=== PATIENT | male | born 1955 | race Caucasian/White ===

== ENCOUNTER 2019-04-04 09:56 | Inpatient (IN) ==
[2019-04-04] MEDS ORDERED: niCARdipine 0 MG/0 ML MLS IVC ONE (10:02)
[2019-04-04] MEDS ORDERED: Aspirin 325 MG TABLET PO ONE (10:10)
[2019-04-04] MEDS ORDERED: Amiodarone Premix 150 MG/100 ML BAG IVPB ONE ×2 (10:10→10:45)
[2019-04-04] MEDS ORDERED: 0.9 % Sodium Chloride 1,000 ML IVC ONE ×3 (10:10→16:20)
[2019-04-04] MEDS ORDERED: Amiodarone Premix 360 MG/200 ML BAG IVC ONE ×3 (10:10→16:22)
[2019-04-04 10:19] LABS: Basophils # 0.1 K/mcL (0.0-0.2); Basophils % 0.9 %; Eosinophils # 0.2 K/mcL (0.0-0.6); Eosinophils % 2.2 %; Hematocrit 45.1 % (37.5-50.1); Immature Granulocytes % 0.3 % (0-4); Lymphocytes # 1.7 K/mcL (0.6-4.6); Lymphocytes % 24.7 %; Mean Corpuscular HGB Conc 33.3 g/dL (31.6-35.5); Mean Corpuscular Hemoglobin 29.9 pg (28.0-33.3); Mean Platelet Volume 9.5 fL (9.4-12.4); Monocytes # 0.6 K/mcL (0.0-1.3); Monocytes % 9.2 %; Neutrophils # 4.2 K/mcL (1.6-8.9); Platelet Count 274 K/mcL (140-400); Red Blood Count 5.01 M/mcL (4.19-5.50); Red Cell Distribution Width 13.4 % (11.5-14.5); Segmented Neutrophils % 62.7 %; White Blood Count 6.7 K/mcL (4.3-11.1)
--- NOTE | 2019-04-04 10:33 | Emergency Department Note ---
Disposition Clinical Impression: Ventricular tachycardia Atrial fibrillation Qualifiers: Atrial fibrillation type: unspecified Qualified Code(s): I48.91 - Unspecified a trial fibrillation Disposition: Admitted As Inpatient Condition: Fair Referrals: Kory Bacon MD [Primary Care Provider] - Forms: ED Satisfaction Letter Time of Disposition: 11:48 General Adult HPI - General Chief complaint: ED Arrhythmia/Palpitations Stated complaint: A. fib Time Seen by Provider: 04/04/19 10:05 Source: patient, EMS Limitations: no limitations Nursing Notes Reviewed: Yes Vital Signs Reviewed: Yes - History of Present Illness Pain Scale: 0 - Related Data Home Medications Medication Instructions Recorded Confirmed Aspirin 325 mg PO DAILY 04/29/17 04/04/19 Metformin HCl [Glucophage] 1,000 mg PO BID 04/29/17 04/04/19 Allergies Allergy/AdvReac Type Severity Reaction Status Date / Time No Known Allergies Allergy Verified 04/04/19 10:27 Past Medical History - Past Medical History Medical history: Reports: CVA, diabetes Surgical history: Reports: herniorrhaphy Psychiatric history: Reports: no psych history - Social History Smoking Status: Never smoker Smokeless Tobacco Status: No Alcohol use: Reports: none Drug use: Reports: none Physical Exam - General Limitations: no limitations General appearance: alert, in no apparent distress Course Vital Signs Temperature 98.3 F 04/04/19 09:59 Pulse Rate 130 04/04/19 09:59 Respiratory Rate 18 04/04/19 09:59 Blood Pressure 120/103 04/04/19 09:59 O2 Sat by Pulse Oximetry 98 04/04/19 09:59 Temperature 98.3 F 04/04/19 09:59 Pulse Rate 128 04/04/19 11:58 Respiratory Rate 18 04/04/19 11:58 Blood Pressure 106/84 04/04/19 11:58 O2 Sat by Pulse Oximetry 100 04/04/19 11:58 Oxygen Delivery Oxygen Delivery Room Air Medical Decision Making - [facility] Narrative Medical decision making narrative: Chest X-Ray 04/04/19 09:58 IMPRESSION: No acute cardiopulmonary findings. D/ / Sasha Jordan MD / Sasha Jordan MD Interpreting Provider: Sasha Jordan MD 1100 hrs.: Patient's labs are back and looked good, troponins negative. Patient's heart rate on 10 mg of diltiazem we will go anywhere from 64 to 120. He is having no chest pain. No further signs of V. tach. We will speak with cardiology and admitted to hospitalist. 1145 hrs. patient's repeat EKG shows a sinus rhythm, rate is 70, QRS is 85, QTc is 389, no signs of acute ischemia he does have Q waves in the inferior leads. No more ectopy. I spoke with Dr. Fisher, he said to go ahead and put a consult on for him. Admit to hospitalist. Transition him off the Cardizem, keep him on the heparin. We will turn the Cardizem down to 5 and see if that works for the next hour and if so then we will transition completely off. And will update with hospitalist. He said to go and put in an echocardiogram non-stat. 1200 hrs.: Patient had a repeat EKG heart rate is 149 with atrial fibrillation, but also has sinus tach, does have Q waves in the inferior leads as before. No ectopy. - Lab Data Result diagrams: 04/04/19 10:07 04/04/19 10:07 Lab Results 04/04/19 04/04/19 04/04/19 Range/Units 10:07 10:07 10:07 WBC 6.7 (4.3-11.1) K/mcL RBC 5.01 (4.19-5.50) M/mcL Hgb 15.0 (12.9-16.9) g/dL Hct 45.1 (37.5-50.1) % MCV 90.0 (83.0-100.0) fL MCH 29.9 (28.0-33.3) pg MCHC 33.3 (31.6-35.5) g/dL RDW 13.4 (11.5-14.5) % Plt Count 274 (140-400) K/mcL MPV 9.5 (9.4-12.4) fL Immature Gran % 0.3 (0-4) % Seg Neutrophils % 62.7 % Lymphocytes % 24.7 % Monocytes % 9.2 % Eosinophils % 2.2 % Basophils % 0.9 % Neutrophils # 4.2 (1.6-8.9) K/mcL Lymphocytes # 1.7 (0.6-4.6) K/mcL Monocytes # 0.6 (0.0-1.3) K/mcL Eosinophils # 0.2 (0.0-0.6) K/mcL Basophils # 0.1 (0.0-0.2) K/mcL Heparin Anti-Xa, Unfract 0.02 L (0.30-0.70) IU/mL Sodium 136 (136-145) mEq/L Potassium 4.6 (3.5-5.1) mEq/L Chloride 101 (98-107) mEq/L Carbon Dioxide 27 (23-29) mEq/L BUN 20 (8-23) mg/dL Creatinine 0.88 (0.70-1.30) mg/dL Est GFR ( Amer) > 60 (> 60) Est GFR (Non-Af Amer) > 60 (> 60) BUN/Creatinine Ratio 23 (6-26) Glucose 205 H (70-105) mg/dL Calculated Osmolality 291 (280-300) Calcium 9.6 (8.6-10.3) mg/dL Magnesium 2.0 (1.6-2.6) mg/dL Troponin I < 0.03 (< 0.04) ng/mL TSH 1.491 (0.340-5.600) mcIU/mL Critical Care Time Critical Care Time: Yes Total Critical Care Time: 50 Attestation: Excluding any separately billable procedures. Attestation Statement - Attestation Attestation: This documentation is done with the assistance of Dragon dictation. Despite efforts made to ensure accuracy, there may be inaccuracies in assembly supervisor or spelling and typographical errors. I examined this patient and my medical decision-making was reviewed with the Resident Physician. I agree with the documented findings, disposition and treatment plan as described except to the extent set forth below. Patient was seen and evaluated by Dr. Porter, I agree with their evaluation and management plan, I supervised care the patient's stay. Patient presents from EMS with atrial fibrillation with rapid ventricular response and episodes of V. tach. 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 He said last night he had some rapid heart rate. This morning he felt fine when he got up he was driving into work and thought his heart rate was rapid again and he started feeling strange. The physician in the urgent care get an EKG on him which showed atrial fibrillation with a rapid ventricular response rates were in between 120s and 160s. And then patient state he had a change he noted that he felt odd did not have any shortness of breath or chest pain. He repeated a strep on him and noted that he was having runs of V. tach anywhere from 8 to 12 beats. Patient had EMS called EMS transported patient here. He had a pulse with each of these episodes of V. tach. And he has had 3 episodes while he has been here. He has not had a history of atrial fibrillation. He is diabetic. He said a stroke in the past. He takes aspirin and metformin as he is diabetic. He denies any allergies. He tells me he thinks he has a hole in his heart ask if that was a PFO and he was uncertain. But it has not been repaired. Because the episodes of V. tach. He did get a dose of amiodarone. I spoke with cardiology, Dr. Fisher, he said to go ahead and start him on diltiazem and see if we could do slow down his heart rate. Started him on heparin. And then we will do a workup and admit. Once again labs back and him stabilized we will speak with Dr. Fisher and hospitalist. Patient denies any chest pain at this time. Heart rate goes anywhere from 60s up to 160. But has had no further episodes of V. tach since he has started on the medication here. I reviewed the residents documentation and agree with the residents assessment and plan of care. I have personally had face to face time with the patient. (Brief History, Brief Exam, and MDM) I personally supervised and was present for the butts/critical portions of the following procedures completed by the resident: EKG was interpreted by the resident under my supervision, I agree with their interpretation.
[2019-04-04] MEDS ORDERED: *HR* Heparin 5,000 UNIT/ML VIAL IVP ONE (10:34)
[2019-04-04] MEDS ORDERED: *HR* Heparin 5,000 UNIT/ML VIAL IVP PRN ×2 (10:34)
[2019-04-04 10:41] LABS: BUN/Creatinine Ratio 23 (6-26); Blood Urea Nitrogen 20 mg/dL (8-23); Calcium 9.6 mg/dL (8.6-10.3); Carbon Dioxide 27 mEq/L (23-29); Chloride 101 mEq/L (98-107); Glucose 205 mg/dL (70-105); Osmolality,Calculated 291 (280-300); Potassium 4.6 mEq/L (3.5-5.1); Sodium 136 mEq/L (136-145); eGFR For African Americans > 60 (> 60); eGFR For Non-African Americans > 60 (> 60)
[2019-04-04 10:42] LABS: Troponin I < 0.03 ng/mL (< 0.04)
[2019-04-04 10:55] LABS: Thyroid Stimulating Hormone 1.491 mcIU/mL (0.340-5.600)
[2019-04-04] MEDS ORDERED: Heparin 25,000 UNIT/250 ML D5W 25,000 UNIT/250 ML IV.SOLN IVC ONE (11:06)
[2019-04-04] MEDS: Heparin 25,000 UNIT/250 ML D5W 25,000 UNIT/250 ML IV.SOLN IVC SCH (11:10)
--- NOTE | 2019-04-04 11:18 | Emergency Department Note ---
Disposition Clinical Impression: Ventricular tachycardia Atrial fibrillation Qualifiers: Atrial fibrillation type: unspecified Qualified Code(s): I48.91 - Unspecified a trial fibrillation Disposition: Admitted As Inpatient Condition: Good Referrals: Kory Bacon MD [Primary Care Provider] - Forms: ED Satisfaction Letter Time of Disposition: 11:45 Arrhythmia/Palpitations HPI - General Chief Complaint: ED Arrhythmia/Palpitations Stated Complaint: chest pain Time Seen by Provider: 04/04/19 10:05 Source: patient, EMS Limitations: no limitations Nursing Notes Reviewed: Yes Vital Signs Reviewed: Yes - History of Present Illness HPI Narrative: Male patient with a cardiac history of a "hole in his heart." As well as a stroke previously his currently only on aspirin a day present see emergency department from work. States that last night he woke up like he was having nightmares his heart was racing. When he went to work this morning he states he had similar feelings. As he got to work he got sicker. He denies any chest pain just palpitations. Denies any shortness of breath. He states that he just does not feel well. Denies any cough or congestion. He denies any drug use. States that he did drink around 3-4 cups of coffee today which this is normal for him. - Related Data Home Medications Medication Instructions Recorded Confirmed Aspirin 325 mg PO DAILY 04/29/17 04/04/19 Metformin HCl [Glucophage] 1,000 mg PO BID 04/29/17 04/04/19 Allergies Allergy/AdvReac Type Severity Reaction Status Date / Time No Known Allergies Allergy Verified 04/04/19 10:27 All systems ED: reviewed and negative except as stated. Review of Systems: As Per HPI Constitutional: Denies: fever, chills ENT ED: Denies: congestion Cardiovascular: Reports: palpitations. Denies: chest pain, syncope Respiratory: Denies: cough, dyspnea Gastrointestinal: Denies: abdominal pain, nausea, vomiting, diarrhea Genitourinary: Denies: urgency, dysuria, frequency, hematuria Integumentary: Denies: rash Neurological: Reports: weakness Past Medical History - Past Medical History Attestation: Yes The following information was validated with the patient. Source: patient Medical history: Reports: CVA, diabetes Surgical history: Reports: herniorrhaphy Psychiatric history: Reports: no psych history - Social History Smoking Status: Never smoker Smokeless Tobacco Status: No Alcohol use: Reports: none Drug use: Reports: none Physical Exam - General Limitations: no limitations General appearance: alert, in no apparent distress - Head Head exam: atraumatic, normocephalic, normal inspection - Eye Eye exam: Present: normal appearance, PERRL, EOMI - ENT ENT exam: normal exam, normal oropharynx, mucous membranes moist - Neck Neck exam: Present: normal inspection, full ROM, trachea midline - Chest Chest inspection: Present: normal inspection, symmetric chest wall rise - Respiratory Respiratory exam: Present: normal lung sounds bilaterally. Absent: respiratory distress, accessory muscle use - Cardiovascular Cardiovascular exam: Present: tachycardia, irregular rhythm, normal heart sounds - Abdominal Exam Abdominal exam: Present: soft, Non-Tender. Absent: tenderness, distention, guarding, rebound, rigidity, organomegaly, Aquino's sign, Rovsing's sign, tenderness at McBurney's Point - Extremities Exam Extremities exam: Present: normal inspection, full ROM, normal capillary refill. Absent: tenderness, pedal edema, calf tenderness - Back Exam Back exam: Present: normal inspection, full ROM. Absent: tenderness - Neurological Exam Neurological exam: Present: alert, oriented X3 - Psychiatric Psychiatric exam: Present: normal affect, normal mood - Skin Skin exam: Present: warm, dry, intact, normal color. Absent: rash, cyanosis, diaphoresis Course Course Narrative: Patient does have a run of V. tach while he is here. He is in A. fib at this time. Bouncing from 60 up to the 160s. He states that he is not feeling well. He denies any chest pain but does report palpitations. We did give patient 150 mg of amiodarone as a bolus secondary to his paroxysmal ventricular tachycardia. My attending did speak with Dr. Fisher with cardiology and he is requesting that we use Cardizem. We will start even the patient a bolus of amiodarone so we will start this as a drip. Patient has no significant electrolyte abnormalities. No history of A. fib. Concern for possible PFO although this is unknown. He just states he has a "hole in his heart. His lung sounds are clear heart tones are normal abdomen is soft nontender. No signs of edema to his extremities. Chest x-ray not concerning for an increased cardiac silhouette. No signs of pneumonia. We did place the patient on low-dose heparin and will admit to the hospital. - Reevaluation(s) Reevaluation #1: Patient's lab work is unremarkable at this time. TSH is normal. Troponin is negative. Chest x-ray is not concerning. Patient is currently on Cardizem drip at this time. He did receive 150 mg bolus of amiodarone. Is on 10 mg grams of Cardizem at this time. His blood pressure is normal systolic however his heart rate is still jumping anywhere from 62 up to the 150s. We will rediscuss this patient with Dr. Fisher and admitted to the hospital. Time: 11:10 - Consultations Consultation #1: Dr Buenrostro accepted Pt in stable condition. Time: 11:30 Vital Signs Temperature 98.3 F 04/04/19 09:59 Pulse Rate 130 04/04/19 09:59 Respiratory Rate 18 04/04/19 09:59 Blood Pressure 120/103 04/04/19 09:59 O2 Sat by Pulse Oximetry 98 04/04/19 09:59 Temperature 98.3 F 04/04/19 09:59 Pulse Rate 62 04/04/19 12:23 Respiratory Rate 16 04/04/19 12:23 Blood Pressure 103/77 04/04/19 12:23 O2 Sat by Pulse Oximetry 100 04/04/19 12:23 Oxygen Delivery Oxygen Delivery Room Air Arrhythmia/Palpitations - Medical Records Medical records reviewed: Yes I reviewed the patient's medical records. - Lab Data Lab results reviewed: Yes I reviewed the patient's lab results. Result diagrams: 04/04/19 10:07 04/04/19 10:07 Lab Results 04/04/19 04/04/19 04/04/19 Range/Units 10:07 10:07 10:07 WBC 6.7 (4.3-11.1) K/mcL RBC 5.01 (4.19-5.50) M/mcL Hgb 15.0 (12.9-16.9) g/dL Hct 45.1 (37.5-50.1) % MCV 90.0 (83.0-100.0) fL MCH 29.9 (28.0-33.3) pg MCHC 33.3 (31.6-35.5) g/dL RDW 13.4 (11.5-14.5) % Plt Count 274 (140-400) K/mcL MPV 9.5 (9.4-12.4) fL Immature Gran % 0.3 (0-4) % Seg Neutrophils % 62.7 % Lymphocytes % 24.7 % Monocytes % 9.2 % Eosinophils % 2.2 % Basophils % 0.9 % Neutrophils # 4.2 (1.6-8.9) K/mcL Lymphocytes # 1.7 (0.6-4.6) K/mcL Monocytes # 0.6 (0.0-1.3) K/mcL Eosinophils # 0.2 (0.0-0.6) K/mcL Basophils # 0.1 (0.0-0.2) K/mcL Heparin Anti-Xa, Unfract 0.02 L (0.30-0.70) IU/mL Sodium 136 (136-145) mEq/L Potassium 4.6 (3.5-5.1) mEq/L Chloride 101 (98-107) mEq/L Carbon Dioxide 27 (23-29) mEq/L BUN 20 (8-23) mg/dL Creatinine 0.88 (0.70-1.30) mg/dL Est GFR ( Amer) > 60 (> 60) Est GFR (Non-Af Amer) > 60 (> 60) BUN/Creatinine Ratio 23 (6-26) Glucose 205 H (70-105) mg/dL Calculated Osmolality 291 (280-300) Calcium 9.6 (8.6-10.3) mg/dL Magnesium 2.0 (1.6-2.6) mg/dL Troponin I < 0.03 (< 0.04) ng/mL TSH 1.491 (0.340-5.600) mcIU/mL Urine Color (Yellow) Urine Clarity (Clear) Urine pH (5.0-8.0) pH Units Ur Specific Ferris (1.010-1.025) Urine Protein (Neg-Trace) mg/dL Urine Glucose (UA) (Normal) mg/dL Urine Ketones (Negative) mg/dL Urine Blood (Negative) Urine Nitrite (Negative) Urine Bilirubin (Negative) Urine Urobilinogen (Normal) mg/dL Ur Leukocyte Esterase (Negative) Ur Culture Indicated? (NO) 04/04/19 Range/Units 12:03 WBC (4.3-11.1) K/mcL RBC (4.19-5.50) M/mcL Hgb (12.9-16.9) g/dL Hct (37.5-50.1) % MCV (83.0-100.0) fL MCH (28.0-33.3) pg MCHC (31.6-35.5) g/dL RDW (11.5-14.5) % Plt Count (140-400) K/mcL MPV (9.4-12.4) fL Immature Gran % (0-4) % Seg Neutrophils % % Lymphocytes % % Monocytes % % Eosinophils % % Basophils % % Neutrophils # (1.6-8.9) K/mcL Lymphocytes # (0.6-4.6) K/mcL Monocytes # (0.0-1.3) K/mcL Eosinophils # (0.0-0.6) K/mcL Basophils # (0.0-0.2) K/mcL Heparin Anti-Xa, Unfract (0.30-0.70) IU/mL Sodium (136-145) mEq/L Potassium (3.5-5.1) mEq/L Chloride (98-107) mEq/L Carbon Dioxide (23-29) mEq/L BUN (8-23) mg/dL Creatinine (0.70-1.30) mg/dL Est GFR ( Amer) (> 60) Est GFR (Non-Af Amer) (> 60) BUN/Creatinine Ratio (6-26) Glucose (70-105) mg/dL Calculated Osmolality (280-300) Calcium (8.6-10.3) mg/dL Magnesium (1.6-2.6) mg/dL Troponin I (< 0.04) ng/mL TSH (0.340-5.600) mcIU/mL Urine Color Yellow (Yellow) Urine Clarity Clear (Clear) Urine pH 5.5 (5.0-8.0) pH Units Ur Specific Ferris 1.016 (1.010-1.025) Urine Protein Negative (Neg-Trace) mg/dL Urine Glucose (UA) Normal (Normal) mg/dL Urine Ketones Negative (Negative) mg/dL Urine Blood Negative (Negative) Urine Nitrite Negative (Negative) Urine Bilirubin Negative (Negative) Urine Urobilinogen Normal (Normal) mg/dL Ur Leukocyte Esterase Negative (Negative) Ur Culture Indicated? NO (NO) - Radiology Data Radiology results reviewed: Yes I reviewed the patient's radiology results. - EKG Data EKG attestation: Yes I reviewed and interpreted this EKG. EKG results narrative: A. fib at a rate of 146. NH interval was not measured. Your's duration is 83. QT is 311. QTC is 395. No signs of acute ischemia. Slow R-wave progression. No signs of WPW or Brugada. This is new onset A. fib for the patient.
[2019-04-04 12:19] LABS: Bilirubin,Urine Negative (Negative); Blood,Urine Negative (Negative); Clarity,Urine Clear (Clear); Color,Urine Yellow (Yellow); Glucose,Urine (UA) Normal (Normal); Ketones,Urine Negative (Negative); Leukocyte Esterase,Urine Negative (Negative); Nitrite,Urine Negative (Negative); PH,Urine 5.5 pH Units (5.0-8.0); Protein,Urine Negative (Neg-Trace); Specific Gravity,Urine 1.016 (1.010-1.025); Urobilinogen,Urine Normal (Normal)
[2019-04-04] MEDS: 0.9 % Sodium Chloride 1,000 ML IVC SCH (12:41)
[2019-04-04] MEDS ORDERED: Acetaminophen 325 MG TABLET PO PRN (14:47)
[2019-04-04] MEDS ORDERED: Naloxone 0.4 MG/ML INJ IVP PRN (14:47)
--- NOTE | 2019-04-04 14:56 | Cardiology Consult Note ---
Date of Encounter: 04/04/19 Time of Encounter: 14:55 Assessment and Plan (1) Atrial fibrillation Current Visit: Yes Status: Acute Per Cardiology: Apparent new onset PAF. Currently sinus rhythm and fluctuating to A. fib with RVR. TSH and Mag stable. Troponin negative. Cycle troponins. Echo pending. We will evaluate for possible stress test tomorrow. On Cardizem drip-- continue to titrate as needed. Monitor tele. No VT noted currently. Electrolytes stable. Regarding long-term anticoagulation, currently on IV heparin drip. Long-term anticoagulation will need addressed prior to discharge. Has history of CVA and ASD repair in 2002. Denies any falling. Denies any recent bleeding concerns. Discussed and reviewed with Dr. Fisher. Qualifiers: Qualified Code(s): I48.0 - Paroxysmal atrial fibrillation Discussion w patient/family: The assessment and plan as outlined above was discussed with the patient and/or family members who expressed understanding and agreement. All questions were answered. Thank you for involving us in the care of your patient. Please call with any questions. History of Present Illness Consult date: 04/04/19 Consult reason: afib Chief complaint: Dizziness History of present illness: Mr. Zhang is a 63 year old male with relevant past medical history of diabetes mellitus, CVA in 2002, ASD repair at [facility] around 2002. Cardiology consult for A. fib and ventricular tachycardia. Seen with family today at bedside. Reports went to work today and noticed episodes of dizziness intermittently. He denied any syncope or falls. Denies any chest pain, shortness of breath, palpitations. Reports ECG obtained at work and noted to be in atrial fibrillation. Currently reports intermittent dizziness. Continues to deny any other concerns or complaints. Denies any recent falls. Denies any active bleeding or blood loss. Reports history of rectal bleeding about 3-4 years ago and underwent GI evaluation with "[facility]". Denies any known history of atrial fibrillation. Denies any recent infectious process, denies any fever, chills, nausea, vomiting, diarrhea. Past Med Surg Social Fam HX - Past Medical History Attestation: Yes The following information was validated with the patient. Source: patient, old records reviewed, obtained from family Medical history: CVA, diabetes, other (ASD repair) Psychiatric history: no psych history - Past Surgical History Surgical History: herniorrhaphy - Social History Smoking Status: Never smoker Smokeless Tobacco Status: No Alcohol use: none Drug use: none Medications and Allergies Aspirin 325 mg PO DAILY 04/29/17 [History] Metformin HCl [Glucophage] 1,000 mg PO BID 04/29/17 [History] Allergy/AdvReac Type Severity Reaction Status Date / Time No Known Allergies Allergy Verified 04/04/19 10:27 All Systems Review: The remainder of the systems were reviewed and are negative - Cardiovascular Cardiovascular: as per HPI, lightheadedness Physical Examination Vital Signs, Last 4 Hours Temp Pulse Resp BP Pulse Ox 04/04/19 14:13 97.7 F 144 26 96/68 99 04/04/19 13:23 128 18 94/64 99 04/04/19 12:48 78 16 99 04/04/19 12:23 62 16 103/77 100 04/04/19 11:58 128 18 106/84 100 General: Conversant, No Apparent Distress HEENT: Atraumatic, Normocephaly, Mucus Membranes Moist Neck: No JVD, Normal carotid pulses Cardiac: Reg Rate and Rhythm, Normal S1 and S2, No Murmur, Other (During exam noted to be sinus rhythm and other times afib) Lungs: Normal Breath Sounds, No Wheeze, Rales, Rhonchi Neuro: Alert and responsive, No focal deficits noted Abdomen: Soft, Non-Tender Skin: No rashes noted on visualized skin Musculoskeletal: No Chest Wall Tenderness Extremities: No Clubbing, No Cyanosis, No Edema, Normal Pulses Results 04/04/19 10:07 04/04/19 10:07 Lab Results Laboratory Tests 04/04/19 04/04/19 10:07 10:07 WBC 6.7 Hgb 15.0 Hct 45.1 Creatinine 0.88 Est GFR (Non-Af Amer) > 60 Troponin I < 0.03 TSH 1.491 ITS Impressions Chest X-Ray 04/04/19 09:58 IMPRESSION: No acute cardiopulmonary findings. D/ / Sasha Jordan MD / Sasha Jordan MD Interpreting Provider: Sasha Jordan MD Active Medications Acetaminophen (Tylenol) 650 mg PO Q6HR PRN PRN Reason: Mild Pain/Fever Stop: 10/04/19 14:48 Heparin Sodium (Porcine) (Heparin) 4,000 unit IVP Q6HR PRN PRN Reason: SEE COMMENTS Stop: 10/04/19 10:35 Heparin Sodium (Porcine) (Heparin) 2,000 unit IVP Q6H PRN PRN Reason: SEE COMMENTS Stop: 10/04/19 10:35 Diltiazem HCl 125 mg/ Sodium (Chloride) 125 mls @ 5 mls/hr IVC CONT JENNIFER; Protocol Stop: 10/04/19 10:31 Last Infusion: 04/04/19 14:52 Dose: 5 mg/hr, 5 mls/hr Documented by: Heparin Sodium/Dextrose (Heparin 25,000 Unit/250 Ml D5w) 25,000 unit in 250 mls @ 9.996 mls/hr IVC .Q24H JENNIFER; Protocol Stop: 10/04/19 10:46 Last Admin: 04/04/19 11:10 Dose: 11.9 unit/kg/hr, 10 mls/hr Documented by: Sodium Chloride (0.9 % Sodium Chloride) 1,000 mls @ 100 mls/hr IVC .Q10H JENNIFER Stop: 10/04/19 12:31 Last Admin: 04/04/19 12:41 Dose: 100 mls/hr Documented by: Naloxone HCl (Narcan) 0.4 mg IVP Q2MPRN PRN PRN Reason: SEE COMMENTS Stop: 10/04/19 14:48 - Imaging and Cardiology Echo: pending - EKG Interpretation EKG results cardiology: personally reviewed Consult Discharge Plan - Plan Referrals: Kory Bacon MD [Primary Care Provider] -
--- NOTE | 2019-04-04 15:07 | Internal Med History&Physical ---
Date of Encounter: 04/04/19 Time of Encounter: 15:00 Internal Medicine - H&P: HPI Chief complaint: Dizziness and lightheadedness Admitted From: Emergency Dept Plans for Post Hospital Care: Home History of present illness: Mr. 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 The patient stated on his way to work this morning he felt dizzy but decided to go to work anyway. However while at work he was not able to fully perform his duties due to dizziness and lightheadedness but denies any loss of consciousness. He stated his boss referred him to go to the ED to be evaluated. He denies any prior history of atrial fibrillation however his was at his bedside stated that patient also has night terrors. She stated that the patient yesterday told her that he is tired of his night terrors making him to having racing heart beats. Overall patient denies any prior history of GI bleed or frequent falls. His workup at the ED was unremarkable-CBC BMP initial troponin and TSH were all within normal limits. His chest x-ray revealed no acute cardiopulmonary abnormality however he was noted to have atrial fibrillation with rapid ventricular response. He has been started on diltiazem drip and heparin drip. He was seen by transcription typist per the consult note, Plan for stress test tomorrow Past Med Surg Social Fam HX - Past Medical History Medical history: CVA, diabetes Psychiatric history: no psych history - Past Surgical History Surgical History: herniorrhaphy - Social History Smoking Status: Never smoker Smokeless Tobacco Status: No Alcohol use: none Drug use: none Internal Medicine - H&P: Meds Aspirin 325 mg PO DAILY 04/29/17 [History] Metformin HCl [Glucophage] 1,000 mg PO BID 04/29/17 [History] Allergy/AdvReac Type Severity Reaction Status Date / Time No Known Allergies Allergy Verified 04/04/19 10:27 All Systems PM: A Review of systems: GENERAL: Denies fever, but admits to chills, denies fatigue or night sweats. DERMATOLOGIC: Denies itch, rash or lesions HEENT: Denies headache, blurriness, diplopia or decreased visual acuity, ear pain, tinnitus, rhinorrhea, sinus tenderness or sore throat RESPIRATORY: Denies SOB, cough, hemoptysis or pleuritic chest pain CARDIOVASCULAR: Denies chest pain, LE edema, admits to palpitation, reports remote history of syncope in his teenage years GASTRO INTESTINAL: Denies cramps, nausea/vomiting, diarrhea or constipation, melena MUSCULOSKELATAL: Denies muscle pain/weakness, joint tenderness/pain or swelling PSYCH: Denies worsening anxiety, or depression NEURO: Denies vertigo, but report dizziness and lightheadedness GENITURINARY: Denies dysuria, nocturia or urinary incontinence - Constitutional Vitals: Temp Pulse Resp BP Pulse Ox 97.7 F 144 26 96/68 99 04/04/19 14:13 04/04/19 14:13 04/04/19 14:13 04/04/19 14:13 04/04/19 14:13 Exam: GENERAL: NAD, A&O x3, pleasant and conversant at his bedside SKIN: No skin lesions or rashes, non-jaundiced, however Is quite tanned and flushed face EYES: EOMI, PERRLA, no sclera icterus HENT: Head atraumatic, no facial asymmetry, frontal and maxillary sinus non- tender, normal hearing, oropharynx and mucosa moist and without any exudates NECK: No cervical lymphadenopathy, trachea midline, thyroid is palpable does not appear enlarged LUNGS: vesicular breath sounds, clear to auscultation, no wheeze, rhonchi, rales or crackles. Non labored respirations HEART: Irregularly irregular rate and rhythm ABDOMEN: soft, non-tender, non-distended, bowel sounds x 4 normoactive EXTRMITIES: No LE asymmetry, No LE edema, pedal pulses 1+ and radial pulses 2 + and equal bilaterally NEURO: Speech and comprehension appears intact. PSYCH: Cooperative, non- anxious or irritable, mood and affect is appropriate Internal Med - H&P Results - Labs CBC & Chem 7: 04/04/19 10:07 04/04/19 10:07 Labs: Short CBC 04/04/19 Range/Units 10:07 WBC 6.7 (4.3-11.1) K/mcL Hgb 15.0 (12.9-16.9) g/dL Hct 45.1 (37.5-50.1) % Plt Count 274 (140-400) K/mcL Neutrophils # 4.2 (1.6-8.9) K/mcL BMP 04/04/19 10:07 Sodium 136 Potassium 4.6 Chloride 101 Carbon Dioxide 27 BUN 20 Creatinine 0.88 Glucose 205 H Calcium 9.6 Cardiac Enzymes 04/04/19 Range/Units 10:07 Troponin I < 0.03 (< 0.04) ng/mL Urine 04/04/19 Range/Units 12:03 Urine Color Yellow (Yellow) Urine Clarity Clear (Clear) Urine pH 5.5 (5.0-8.0) pH Units Ur Specific Elrod 1.016 (1.010-1.025) Urine Protein Negative (Neg-Trace) mg/dL Urine Glucose (UA) Normal (Normal) mg/dL - Impressions ITS Impressions Chest X-Ray 04/04/19 09:58 IMPRESSION: No acute cardiopulmonary findings. D/ / Sasha Jordan MD / Sasha Jordan MD Interpreting Provider: Sasha Jordan MD - Assessment and Plan (1) Atrial fibrillation with RVR Current Visit: Yes Status: Acute Assessment and plan: Although this appears to be new onset A. fib, his endorse a history of patient having night terrors and complaining of having racing heartbeats. Quite likely patient has proximal A. fib. 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 He denies any focal deficits except for global aphasia. Not currently on any anti-lipid medication, his only medication is aspirin. He will benefit from secondary prevention medical management. Will check lipid panel in am. (4) DVT prophylaxis Current Visit: Yes Status: Acute Assessment and plan: on heparin drip - Time Spent With Patient Total time spent is greater than 50% in coordination of care (as documented) at patient's floor/unit and/or counseling patient:
[2019-04-04] MEDS ORDERED: D5% in Water 1,000 ML IVC PRN (15:13)
[2019-04-04] MEDS ORDERED: Dextrose Gel 15 GM/37.5 ML TUBE PO PRN ×2 (15:13)
[2019-04-04] MEDS ORDERED: *HR* Dextrose 50 % in Water (Syg) 50 ML SYRINGE IVP PRN (15:13)
[2019-04-04] MEDS: Insulin LISPRO 300 UNITS/3 ML VIAL SQ SCH (16:38)
[2019-04-04 17:24] LABS: Estimated Average Glucose 143 mg/dl
[2019-04-04] MEDS: Amiodarone Premix 360 MG/200 ML BAG IVC SCH (21:16)
[2019-04-05] MEDS: 0.9 % Sodium Chloride 1,000 ML IVC SCH ×3 (03:12→20:26)
[2019-04-05] MEDS: Insulin LISPRO 300 UNITS/3 ML VIAL SQ SCH ×3 (07:18→17:01)
[2019-04-05] MEDS ORDERED: 0.9 % Sodium Chloride 1,000 ML IVC ONE ×2 (07:27→07:31)
[2019-04-05] MEDS ORDERED: 0.9 % Sodium Chloride 1,000 ML ONE ×2 (07:33→10:08)
[2019-04-05 07:41] LABS: Basophils # 0.1 K/mcL (0.0-0.2); Basophils % 0.7 %; Eosinophils # 0.2 K/mcL (0.0-0.6); Eosinophils % 2.6 %; Hemoglobin 13.5 g/dL (12.9-16.9); Immature Granulocytes % 0.3 % (0-4); Lymphocytes # 1.8 K/mcL (0.6-4.6); Lymphocytes % 24.1 %; Mean Corpuscular HGB Conc 32.9 g/dL (31.6-35.5); Mean Corpuscular Hemoglobin 29.7 pg (28.0-33.3); Mean Corpuscular Volume 90.1 fL (83.0-100.0); Mean Platelet Volume 9.9 fL (9.4-12.4); Monocytes # 0.6 K/mcL (0.0-1.3); Monocytes % 8.3 %; Neutrophils # 4.7 K/mcL (1.6-8.9); Platelet Count 222 K/mcL (140-400); Red Blood Count 4.55 M/mcL (4.19-5.50); Red Cell Distribution Width 13.5 % (11.5-14.5); White Blood Count 7.3 K/mcL (4.3-11.1)
[2019-04-05 07:58] LABS: Alanine Aminotransferase 9 Units/L (7-52); Albumin 3.5 g/dL (3.5-5.7); Albumin/Globulin Ratio 1.5 (1.1-2.2); Alkaline Phosphatase 55 Units/L (34-104); Aspartate Amino Transferase 13 Units/L (13-39); BUN/Creatinine Ratio 13 (6-26); Bilirubin,Direct 0.1 mg/dL (0.0-0.2); Bilirubin,Indirect 0.3 mg/dL (0.0-1.2); Bilirubin,Total 0.4 mg/dL (0.3-1.0); Blood Urea Nitrogen 10 mg/dL (8-23); Calcium 8.4 mg/dL (8.6-10.3); Carbon Dioxide 22 mEq/L (23-29); Chloride 109 mEq/L (98-107); Chol/HDL Ratio 3.1 (0-4.9); Cholesterol 138 mg/dL (< 200); Globulin 2.3 g/dL (2.4-3.5); Glucose 124 mg/dL (70-105); HDL Cholesterol 45 mg/dL (40-59); LDL Cholesterol,Calculated 79 mg/dL (0-99); Magnesium 1.8 mg/dL (1.6-2.6); Osmolality,Calculated 292 (280-300); Sodium 141 mEq/L (136-145); Total Protein 5.8 g/dL (6.4-8.9); Triglycerides 70 mg/dL (< 150); eGFR For African Americans > 60 (> 60); eGFR For Non-African Americans > 60 (> 60)
--- NOTE | 2019-04-05 08:14 | Cardiology Progress Note ---
Date of Encounter: 04/05/19 Time of Encounter: 08:10 Assessment and Plan (1) Atrial fibrillation Current Visit: Yes Status: Acute Per Cardiology: Apparent new onset PAF. Currently sinus rhythm and fluctuating to A. fib with RVR. TSH and Mag stable. Troponin negative. Cycle troponins. Echo pending. Cardizem drip now off. Now on amiodarone drip. Regarding long-term anticoagulation, currently on IV heparin drip. Long-term anticoagulation will need addressed prior to discharge. Has history of CVA and ASD repair in 2002. Qualifiers: Atrial fibrillation type: paroxysmal Qualified Code(s): I48.0 - Paroxysmal atrial fibrillation (2) NSVT (nonsustained ventricular tachycardia) Current Visit: Yes Status: Acute Per Cardiology: Recurrence of nonsustained VT yesterday evening observed per Dr. Fisher. Patient now on amiodarone drip. No recurrence noted this morning. Denies any chest pain. Troponin pending. Echo pending. Potassium 4.0. Magnesium 1.8, will attempt to increase to about 2.0. Discussed and reviewed with Dr. Fisher, recs for left heart catheterization today. Patient and are agreeable. All questions answered. Discussion w patient/family: The assessment and plan as outlined above was discussed with the patient and/or family members who expressed understanding and agreement. All questions were answered. Thank you for involving us in the care of your patient. Please call with any questions. Subjective Principal diagnosis: Afib, NSVT Interval history: Continues to experience episodes of dizziness. Reports overall he feels "worse than when he came". He denies any chest pain or palpitations. Objective Vital Signs, Last 4 Hours Temp Pulse Resp BP Pulse Ox 04/05/19 07:35 98.3 F 94 18 69/59 96 04/05/19 05:32 84 General: Conversant, No Apparent Distress HEENT: Atraumatic, Normocephaly, Mucus Membranes Moist Neck: No JVD, Normal carotid pulses Cardiac: No Murmur, Other Lungs: Normal Breath Sounds, No Wheeze, Rales, Rhonchi Neuro: Alert and responsive, No focal deficits noted Abdomen: Soft, Non-Tender Skin: No rashes noted on visualized skin Musculoskeletal: No Chest Wall Tenderness Extremities: No Clubbing, No Cyanosis, No Edema, Normal Pulses Results 04/05/19 07:02 08/04/19 07:02 Lab Results Laboratory Tests 04/04/19 04/05/19 04/05/19 10:07 07:02 07:02 Hgb 13.5 D Hct 41.0 Potassium 4.0 Creatinine 0.77 Est GFR (Non-Af Amer) > 60 Magnesium 1.8 Troponin I < 0.03 LDL Cholesterol, Calc 79 Impressions Chest X-Ray 04/04/19 09:58 IMPRESSION: No acute cardiopulmonary findings. D/ / Sasha Jordan MD / Sasha Jordan MD Interpreting Provider: Sasha Jordan MD Active Medications Acetaminophen (Tylenol) 650 mg PO Q6HR PRN PRN Reason: Mild Pain/Fever Stop: 10/04/19 14:48 Dextrose/Water (Dextrose 50% (Syg)) 25 ml IVP AD PRN PRN Reason: Hypoglycemia Stop: 10/04/19 15:14 Glucagon (Glucagen) 1 mg IM ONCE PRN PRN Reason: Hypoglycemia Stop: 10/04/19 15:14 Glucose (Gluctose) 15 gm PO ONCE PRN PRN Reason: Hypoglycemia Stop: 10/04/19 15:14 Glucose (Gluctose) 30 gm PO ONCE PRN PRN Reason: Hypoglycemia Stop: 10/04/19 15:14 Heparin Sodium (Porcine) (Heparin) 4,000 unit IVP Q6HR PRN PRN Reason: SEE COMMENTS Stop: 10/04/19 10:35 Heparin Sodium (Porcine) (Heparin) 2,000 unit IVP Q6H PRN PRN Reason: SEE COMMENTS Stop: 10/04/19 10:35 Heparin Sodium/Dextrose (Heparin 25,000 Unit/250 Ml D5w) 25,000 unit in 250 mls @ 9.996 mls/hr IVC .Q24H JENNIFER; Protocol Stop: 10/04/19 10:46 Last Titration: 04/05/19 00:07 Dose: 13.9 unit/kg/hr, 11.7 mls/hr Documented by: Sodium Chloride (0.9 % Sodium Chloride) 1,000 mls @ 100 mls/hr IVC .Q10H JENNIFER Stop: 10/04/19 12:31 Last Admin: 04/05/19 03:12 Dose: 100 mls/hr Documented by: Dextrose (Dextrose 5%) 1,000 mls @ 100 mls/hr IVC .Q10H PRN PRN Reason: HYPOGLYCEMIA Stop: 10/04/19 15:14 Amiodarone HCl/Dextrose (Amiodarone Drip Premix 360mg/200ml) 360 mg in 200 mls @ 16.667 mls/hr IVC CONT JENNIFER Stop: 10/04/19 16:31 Last Admin: 04/04/19 21:16 Dose: 0.5 mg/min, 16.7 mls/hr Documented by: Sodium Chloride (0.9 % Sodium Chloride) 1,000 mls @ 999 mls/hr IVC .Q1H1M ONE Stop: 04/05/19 08:27 Magnesium Sulfate 1 gm/ Sodium (Chloride) 102 mls @ 104 mls/hr IVPB ONCE ONE Stop: 04/05/19 09:11 Insulin Human Lispro (Humalog) 6 units 0.08 units/kg (6 units) SQ TIDWM [facility] Stop: 10/04/19 17:01 Last Admin: 04/05/19 07:18 Dose: Not Given Documented by: Naloxone HCl (Narcan) 0.4 mg IVP Q2MPRN PRN PRN Reason: SEE COMMENTS Stop: 10/04/19 14:48 - Imaging and Cardiology Echo: pending Consult Discharge Plan - Plan Referrals: Kory Bacon MD [Primary Care Provider] -
[2019-04-05] MEDS ORDERED: Perflutren Lipid Microsphere 1.3 ML in 0.9 % Sodium Chloride 8.7 ML IVP ONE (08:57)
[2019-04-05] MEDS ORDERED: Nitroglycerin 1,000 MCG/10 ML VIAL IV ONE (10:08)
[2019-04-05] MEDS ORDERED: ISOVUE-370 200 ML INFUS..BTL ONE (10:08)
[2019-04-05] MEDS ORDERED: Heparin 1,000 UNITS/500 mL 500 ML ONE (10:08)
[2019-04-05] MEDS ORDERED: *HR* Heparin 10,000 UNIT/10 ML VIAL ONE (10:08)
[2019-04-05] MEDS ORDERED: Verapamil 5 MG/2 ML VIAL ONE (10:12)
[2019-04-05] MEDS ORDERED: *HR* Midazolam HCl 2 MG/2 ML VIAL ONE (10:12)
[2019-04-05] MEDS ORDERED: *HR* FentaNYL (PF) 100 MCG/2 ML VIAL ONE (10:13)
--- NOTE | 2019-04-05 10:22 | Pre-Sedation Evaluation ---
Pre-sedation evaluation - Pre-sedation checklist Date of procedure: 04/05/19 Procedure: [facility] Recent Vitals: Last Vital Signs Temp 98.3 F 04/05/19 07:35 Pulse 94 04/05/19 07:35 Resp 18 04/05/19 07:35 BP 69/59 04/05/19 07:35 Pulse Ox 96 04/05/19 07:35 H&P (including ROS) documented in medical record: Yes Previous reaction to sedatives/anesthetics: No Dietary Status: NPO after Midnight Dentition: No loose teeth or bridges ASA Classification *see protocol: CLASS II-Mild systemic disease Plan of Care: Pt appropriate candidate for procedure/moderate/conscious sedation, Risks/benefits of procedure/sedation discussed w/ patient/family Cardiac Registry (Cardio Only) - Functional Capacity Functional Capacity: >=4 METS with symptoms - Clincal Frailty Scale Clinical Frailty Scale: Managing Well
--- NOTE | 2019-04-05 11:36 | Invasive Diagnostic Lab Proc ---
Name: Fredrick Zhang Date of Study: 04/05/2019 Date: 1955 Ht: 70.1in Medical Record#: [id number] Age: 63 Wt: 179.24lb Gender: Male BSA: 1.99 Order #: [id number] BMI: 25.66 Physicians Procedure Physician: Gabriel Landeros MD, [facility] Referring MD: Referring MD: Staff Name Position Time In Juan Cano RN Monitor 10:25 AM La Duncan RT (R) Scrub 10:25 AM Isa Dueñas RN Radiagraph Operator 10:25 AM Juan Cano RN Monitor 10:25 AM Zenaida Araujo RT (R) Scrub 10:25 AM Indications Indication Other-Unstable Angina Procedures Performed Procedure L HRT ARTERY/VENTRICLE ANGIO Pre-Procedure Checklist Informed consent is complete signed and on chart. H&P is on chart. ID band is on and ID verified with patient. Patient NPO for procedure The procedure was described for the patient and questions were answered. ECG is on chart. Plan of Care Patient will tolerate the procedure without complications. Adequate level of comfort will be maintained. Hemodynamics will remain stable Patient will recover from procedure without complications. Respiratory function will be maintained. Cardiac rhythm will remain stable. Patient temperature will be maintained. Patient and/or family have verbalized understanding of the procedure. Patient Education Intravenous Access Time IV Size Location DC'd Fluid/Drip Rate Units RN 10:48 AM 18g 1 1/4" Patent On Arrival Lt Wrist Amiodarone 16.7 ml/hr 10:48 AM 20g 1 1/4" Patent On Arrival Rt Antecubital 0.9NaCl 25 ml/hr Allergies NKA Vital Signs Time BP (mmHg) HR (bpm) O2 Sat. RR (bpm) LOC 10:44 AM / % 5 = Fully awake and oriented or at pre-proc level 10:44 AM / % 5 = Fully awake and oriented or at pre-proc level 10:42 AM 119 / 82 113 99 % 25 10:47 AM 102 / 72 62 88 % 16 10:52 AM 109 / 60 66 91 % 16 10:57 AM 99 / 66 67 94 % 18 11:02 AM 103 / 61 70 95 % 17 11:07 AM 101 / 62 70 96 % 17 11:12 AM 101 / 62 70 96 % 19 10:59 AM / % 4 = Oriented but drowsy Procedural Medications Time Medication Dose Units Method Given By 10:43 AM Oxygen 2 L/min nasal cannula Isa Dueñas RN 10:43 AM Versed 2 mg Intravenous Isa Dueñas RN 10:43 AM Fentanyl 50 mcg Intravenous Isa Dueñas RN 10:50 AM Lidocaine 2% 1 ml Subcutaneous Gabriel Landeros MD, FACC 10:52 AM Heparin 2000 units Nitroglycerin 200 mcg Verapamil 2.5 mg Intraarterial Gabriel Landeros MD, FAC 10:57 AM Lidocaine 2% 10 ml Subcutaneous Gabriel Landeros MD, [facility] ASA Classification: CLASS II- Mild systemic disease (i.e. well-controlled diabetes, hypertension, asthma, cigarette smoking) Kg Score Preprocedure Postprocedure Activity 2- Moves 4 extremities sustained head lift Activity 2- Moves 4 extremities sustained head lift Circulation 2- SBP +/= 20 points of pre-anesthetic level Circulation 2- SBP +/= 20 points of pre-anesthetic level Consciousness 2- Awake and alert oriented x 3 Consciousness 2- Awake and alert oriented x 3 O2 Saturation 2- Able to maintain O2 satruation of 92% on room air O2 Saturation 2- Able to maintain O2 satruation of 92% on room air Respiratory 2- Able to deep breathe and cough well Respiratory 2- Able to deep breathe and cough well Total Score 10 Total Score 10 Contrast Agent: Isovue Diagnostic Contrast: 67 ml Total Contrast: 67 ml Fluoro Dose: 19 mGy Activated Clotting Time Time Seconds to Clot 11:12 AM 190 Procedure Log Time Note Enter By 10:25 AM Patient charges- Angio tray pack, Navilyst 3mm J, Pulse Oximetry and ACIST tubing and transducer cedwards 10:25 AM Juan Cano RN Position: Monitor Time in: 10:25 cedwards 10:25 AM La Duncan RT (R) Position: Scrub Time in: 10:25 cedwards 10:25 AM Isa Dueñas RN Position: Radiagraph Operator Time in: 10:25 cedwards 10:25 AM Juan Cano RN Position: Monitor Time in: 10:25 cedwards 10:26 AM Zenaida Araujo RT (R) Position: Scrub Time in: 10:25 cedwards 10:26 AM IV Supplies used: J loop Angio Cath. cedwards 10:26 AM ASA Class CLASS II- Mild systemic disease (i.e. well-controlled diabetes, hypertension, asthma, cigarette smoking) cedwards 10:42 AM Vitals capture started with the following parameters, Patient=Adult, Interval=5 min, Initial Ojuihpjt=216 mmHg, Deflation Rate=3 mmHg, Cuff placed on Right Arm 10:42 AM Recorded ECG: HR=93 Condition=Condition 1 10:42 AM AY=706 bpm, SSOK=962/82 mmhg, SpO2=99.0 %, Resp=25 B/min 10:42 AM Pt arrived to [employer] 2 at 10:42 cedwards 10:42 AM Physician arrived 10:42 cedwards 10:43 AM Meet and debbie completed cedwards 10:43 AM Sign in performed according to hospital policy. Informed consent was obtained. cedwards 10:43 AM Time: 10:43 Oxygen on at 2 L/min per nasal cannula by Isa Dueñas RN cedwards 10:43 AM Recorded ECG: HR=92 Condition=Condition 1 10:43 AM Time: 10: Versed 2 mg Intravenous Given by Isa Dueñas RN cedwards 10:44 AM Time: 10:43 Fentanyl 50 mcg Intravenous Given by Isa Dueñas RN cedwards 10:44 AM Time: 10:44 Patient comfortable and pain free: Yes cedwards 10:44 AM Time: 10:44LOC: 5 = Fully awake and oriented or at pre-proc level cedwards 10:44 AM Hair removed from procedure site in procedure lab using clippers. Right wrist and Right groin prepped with Chloraprep by Zenaida Araujo), then patient was draped. Skin intact. cedwards 10:45 AM CathStat 10:45 AM Procedure start 10:43 cedwards 10:47 AM HR=62 bpm, PEHG=571/72 mmhg, SpO2=88.0 %, Resp=16 B/min 10:50 AM Clinical Presentation: Unstable angina cedwards 10:50 AM Time out was performed according to hospital policy. Conscious sedation and anesthesia was achieved (see medication log with in this report above) cedwards 10:50 AM Time: 10:50 1 ml Lidocaine 2% to right radial Subcutaneous Given by Gabriel Landeros MD, [facility] cedwards 10:51 AM Access obtained by percutaneous puncture. 5/6Fr 11cm Terumo Glidesheath sheath placed in right Radial artery. [id number] cedwards 10:52 AM Time: 10:52 Patient given 2,000 units Heparin, 200 mcg Nitroglycerin, and 2.5 mg Verapamil Intraarterial by Gabriel Landeros MD, [facility]. This is given to reduce risk of vessel spasm and thrombosis. cedwards 10:52 AM HR=66 bpm, RBLT=701/60 mmhg, SpO2=91.0 %, Resp=16 B/min 10:53 AM 5Fr TIG catheter inserted over the wire [facility], unable to advance cedwards 10:54 AM 0.035 260cm Navilyst 3mmJ wire [id number] cedwards 10:56 AM unable to advance catheter cedwards 10:57 AM HR=67 bpm, NIBP=99/66 mmhg, SpO2=94.0 %, Resp=18 B/min 10:58 AM Time: 10:57 10 ml Lidocaine 2% to right groin Subcutaneous Given by Gabriel Landeros MD, [facility] cedwards 10:59 AM Access obtained by percutaneous puncture. 5Fr 10cm Terumo [place] sheath placed in right Femoral artery. [id number] cedwards 10:59 AM Time: 10:44 Patient comfortable and pain free: Yes cedwards 10:59 AM Time: 10:44LOC: 5 = Fully awake and oriented or at pre-proc level cedwards 10:59 AM 5Fr FL 4 catheter inserted over the wire [facility] cedwards 11:00 AM LCA angiography performed in multiple views. cedwards 11:01 AM Recorded Pressure: Ao, HR=67, Condition=Condition 1 (Aorta) Ao 87/63/75 11:02 AM Catheter removed cedwards 11:02 AM HR=70 bpm, NXJI=486/61 mmhg, SpO2=95.0 %, Resp=17 B/min 11:03 AM 5Fr FR 4 catheter inserted over the wire [facility] cedwards 11:03 AM RCA angiography performed in multiple views. cedwards 11:04 AM Recorded Pressure: LV, HR=65, Condition=Condition 1 (Left Ventricle) LV 104/1/10 11:04 AM Catheter crossed the aortic valve and was selectively placed in the left ventricle. Pressures recorded on pullback for left heart catheterization. cedwards 11:04 AM Bolus angiogram of left Ventricle complete: 10 ml/sec for a total of 30 mls cedwards 11:04 AM Recorded Pressure: LV, Ao, HR=73, Condition=Condition 1 (Left Ventricle) LV 98/3/11, (Aorta) Ao 91/58/73 11:05 AM Recorded Pressure: Ao, HR=72, Condition=Condition 1 (Aorta) Ao 95/59/76 11:05 AM RCA angiography performed in multiple views. cedwards 11:06 AM Coronary Dominance: right cedwards 11:06 AM Catheter removed cedwards 11:07 AM HR=70 bpm, IWSK=157/62 mmhg, SpO2=96.0 %, Resp=17 B/min 11:08 AM Femoral angiogram performed cedwards 11:08 AM Procedure completed at 11:08 04/05/2019 cedwards 11:08 AM Did you address WESLEY flow and Dominance? YesCoronary Dominance: right cedwards 11:09 AM Sign out completed: Radiation Dose 136.77 mGy, 19.4 Gy/cm2 Fluoro Time: 2.3 Isovue 370 - 200ml contrast 66.8 ml given by Gabriel Landeros MD, FACC. Complications: None. The patient was discharged out of the cath lab radiological technologist in stable condition. Sedation minutes 23. Cardiac Rehab Consult needed: No. Confirmed administered medications: Yes cedwards 11:09 AM Isovue 370 - 200ml,1 Bottle(s) used. cedwards 11:09 AM Sheath left in place to be pulled on floor/holding areaV+Pad cedwards 11:09 AM Estimated Blood Loss: minimal cedwards 11:09 AM Post ECG Atrial Fibrillation cedwards 11:10 AM Post Blood Pressure 101/62 cedwards 11:10 AM Information taught Cardiac Cath cedwards 11:10 AM Education needs Procedure, Plan of Care, and Disease Process cedwards 11:10 AM Learning barriers :None cedwards 11:10 AM Education Methods Verbal cedwards 11:10 AM Education evaluation Able to repeat information cedwards 11:10 AM Site status No bleeding/ No Hematoma - Rt Groin as reported by La Duncan RT (R) at 11:10 cedwards 11:10 AM Plavix, Effient or Brilinta given No cedwards 11:10 AM Family placed in consult room. cedwards 11:10 AM Complications: None cedwards 11:12 AM At 11:12 the ACT was 190 seconds. cedwards 11:12 AM HR=70 bpm, WOBB=308/62 mmhg, SpO2=96 %, Resp=19 B/min 11:13 AM 6 ml air in Vasc Band. cedwards 11:15 AM Time: 10:59LOC: 4 = Oriented but drowsy cedwards 11:15 AM Time: 10:59 Patient comfortable and pain free: Yes cedwards 11:15 AM Lesion found in Distal RCA. Pre Stenosis: 20 Pre WESLEY Flow: cedwards 11:16 AM Lesion found in Mid LAD. Pre Stenosis: 20 Pre WESLEY Flow: 2: Partial Flow/Perfusion (> 1 but < 3) cedwards 11:16 AM Lesion found in Distal LAD. Pre Stenosis: 20 Pre WESLEY Flow: 2: Partial Flow/Perfusion (> 1 but < 3) cedwards 11:16 AM Lesion found in Proximal LAD. Pre Stenosis: 20 Pre WESLEY Flow: 2: Partial Flow/Perfusion (> 1 but < 3) cedwards 11:17 AM Report given to Rosa Isela DANG Pt taken to 2N Room #10. 11:17 cedwards Complications Complication None None Hemodynamics Pressures Site Systolic/A Wave Diastolic/V Wave Mean AO 87 63 75 LV 104 1 10 LV 98 3 11 AO 91 58 73 AO 95 59 76 Post Procedure Information Blood Pressure: 101/62 mmHg Rhythm: Atrial Fibrillation Post procedural instructions were given Site Checks Time Location Status Staff Sheath In? Note 11:10 AM Rt Groin No bleeding/ No Hematoma La Duncan RT (R) Pulses Updated by Juan Cano RN on 04/05/2019 11:20:10 AM electronically signed on 04/05/2019 11:20:48 AM with status of Final
--- NOTE | 2019-04-05 11:58 | Event Note ---
Date of Encounter: 04/05/19 Time of Encounter: 09:30 HAS-BLED Score - Score Stroke: Prior history of stroke Score: 1
[2019-04-05] MEDS ORDERED: *HR* Atropine Sulfate 1 MG/10 ML SYRINGE ONE (12:15)
--- NOTE | 2019-04-05 13:59 | Internal Med Progress Note ---
Hospitalist Progress Note - Encounter Date of Encounter: 04/05/19 Time of Encounter: 13:57 - Subjective Interval History: Mr Zhang is status post left heart catheter. earlier this am he was hypotensive requiring a saline bolus and IV infusion he responded to IV fluids GEN: Denies fever, chills or malaise HEENT: Denies headache blurriness, or dysphagia RESP: Denies SOB or cough CV: Denies chest pain or palpitations GI: Denies Nausea, vomiting, diarrhea or constipation Reviewed current in hospital medications with modifications see orders Reviewed Routine labs - Exam Vitals: Temp Pulse Resp BP Pulse Ox 97.8 F 55 18 100/64 97 04/05/19 11:30 04/05/19 12:55 04/05/19 13:00 04/05/19 13:00 04/05/19 13:00 Exam: GEN: NAD, A&O x 3, Pleasant and conversant, and 2 sons wet his bedside SKIN: [place] warm acyanotic not jaundice HEART: RRR, no murmurs LUNGS: CTA no wheeze or crackles, overall non labored ABDOMEN; Soft, non tender or distended, BS x 4 normactive EXT: No LE edema, Pedal pulses 1+, radial pulses 2+ PSYCH: Mood and affect is appropriate - Assessment and Plan (1) Atrial fibrillation with RVR Current Visit: Yes Status: Acute Assessment and Plan: Status post left heart catheter, appears normal sinus rhythm on telemetry and on exam,diltiazem gtt has been discontinued, now on amiodarone, insulin TSH is unremarkable 1.49. Baseline LFTs also unremarkable within normal limits. 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 We will likely need anticoagulation per cardiology recommendation Although this appears to be new onset A. fib, his endorse a history of patient having night terrors and complaining of having racing heartbeats. Quite likely patient has proximal A. fib. 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 He denies any focal deficits except for global aphasia. Not currently on any anti-lipid medication, his only medication is aspirin. He will benefit from secondary prevention medical management. Will check lipid panel in am. (4) DVT prophylaxis Current Visit: Yes Status: Acute Assessment and Plan: on heparin drip, we will transition to oral anticoagulation - Time Spent with Patient Total time spent is greater than 50% in coordination of care (as documented) at patient's floor/unit and/or counseling patient: Plan of Care Discussed with: family Internal Medicine: Result - Labs CBC & Chem 7: 04/05/19 07:02 04/05/19 07:02 Labs: Short CBC 04/05/19 Range/Units 07:02 WBC 7.3 (4.3-11.1) K/mcL Hgb 13.5 D (12.9-16.9) g/dL Hct 41.0 (37.5-50.1) % Plt Count 222 (140-400) K/mcL Neutrophils # 4.7 (1.6-8.9) K/mcL BMP 04/05/19 07:02 Sodium 141 Potassium 4.0 Chloride 109 H Carbon Dioxide 22 L BUN 10 Creatinine 0.77 Glucose 124 H Calcium 8.4 L Cardiac Enzymes 04/05/19 Range/Units 08:37 Troponin I < 0.03 (< 0.04) ng/mL Liver Function 04/05/19 Range/Units 07:02 Total Bilirubin 0.4 (0.3-1.0) mg/dL Direct Bilirubin 0.1 (0.0-0.2) mg/dL AST 13 (13-39) Units/L ALT 9 (7-52) Units/L Alkaline Phosphatase 55 (34-104) Units/L Albumin 3.5 (3.5-5.7) g/dL - Impressions Impressions Echocardiogram 04/04/19 13:27 Impressions: Not all LV segments were well visualized. Grossly, LV function appears mildly reduced. Normal LV chamber size, wall thickness. Indeterminate diastolic function. Normal right ventricular structure and function. No evidence of a PFO with agitated saline contrast. No evidence of pulmonary hypertension. No significant valvular dysfunction. Recommend a repeat limited study with contrast enhancement for better evaluation of LV function. Findings: Study Quality * Technically sub-optimal due to poor echocardiographic windows. ECG Findings * Atrial fibrillation. Left Ventricle * Not all LV segments were well visualized. Grossly, LV function appears mildly reduced. * Normal LV chamber size, wall thickness. * Indeterminate diastolic function. Right Ventricle * Normal right ventricular structure and function. Left Atrium * Moderately dilated left atrium. Right Atrium * Normal right atrial size. Interatrial Septum * No evidence of a PFO with agitated saline contrast. Aortic Valve * Trileaflet aortic valve with normal function. * No aortic regurgitation. * No aortic stenosis. Mitral Valve * Normal mitral valve structure and function. * No mitral regurgitation. * No mitral stenosis. Tricuspid Valve * Normal tricuspid valve structure and function. * Trace tricuspid regurgitation. * No evidence of pulmonary hypertension. Pulmonic Valve * Normal pulmonic valve structure and function. * Trace pulmonic regurgitation. Aorta * Normally sized aortic root. Pericardium * The pericardium appears normal. IVC * Normal IVC dimensions and inspiratory collapse. Pulmonary Artery * Normal visualized portions of the main pulmonary artery. Consult Discharge Plan - Plan Referrals: Kory Bacon MD [Primary Care Provider] - (2) Type 2 diabetes mellitus Qualifiers: Diabetes mellitus ferry terminal agent insulin use: without prison use Diabetes mellitus complication status: without complication Qualified Code(s): E11.9 - Type 2 diabetes mellitus without complications
[2019-04-05] MEDS: Amiodarone Premix 360 MG/200 ML BAG IVC SCH ×2 (14:03→21:47)
[2019-04-05] MEDS: Heparin 25,000 UNIT/250 ML D5W 25,000 UNIT/250 ML IV.SOLN IVC SCH (20:27)
[2019-04-06 04:51] LABS: Basophils % 0.6 %; Eosinophils # 0.3 K/mcL (0.0-0.6); Eosinophils % 4.1 %; Hematocrit 39.7 % (37.5-50.1); Immature Granulocytes % 0.2 % (0-4); Lymphocytes # 1.7 K/mcL (0.6-4.6); Lymphocytes % 27.4 %; Mean Corpuscular HGB Conc 32.7 g/dL (31.6-35.5); Mean Corpuscular Hemoglobin 29.8 pg (28.0-33.3); Mean Corpuscular Volume 91.1 fL (83.0-100.0); Monocytes # 0.6 K/mcL (0.0-1.3); Monocytes % 9.4 %; Neutrophils # 3.7 K/mcL (1.6-8.9); Platelet Count 180 K/mcL (140-400); Red Blood Count 4.36 M/mcL (4.19-5.50); Red Cell Distribution Width 13.4 % (11.5-14.5); Segmented Neutrophils % 58.3 %; White Blood Count 6.3 K/mcL (4.3-11.1)
[2019-04-06 05:10] LABS: BUN/Creatinine Ratio 14 (6-26); Blood Urea Nitrogen 11 mg/dL (8-23); Calcium 8.3 mg/dL (8.6-10.3); Carbon Dioxide 24 mEq/L (23-29); Chloride 108 mEq/L (98-107); Glucose 120 mg/dL (70-105); Magnesium 2.1 mg/dL (1.6-2.6); Osmolality,Calculated 287 (280-300); Potassium 3.9 mEq/L (3.5-5.1); Sodium 138 mEq/L (136-145); eGFR For African Americans > 60 (> 60); eGFR For Non-African Americans > 60 (> 60)
[2019-04-06] MEDS: 0.9 % Sodium Chloride 1,000 ML IVC SCH ×2 (06:31→16:05)
[2019-04-06] MEDS: Insulin LISPRO 300 UNITS/3 ML VIAL SQ SCH ×3 (07:56→16:51)
[2019-04-06] MEDS: Amiodarone Premix 360 MG/200 ML BAG IVC SCH (09:53)
[2019-04-06] MEDS ORDERED: *HR* Amiodarone 200 MG TABLET PO SCH (11:51)
--- NOTE | 2019-04-06 11:53 | Electrophysiology Consult Note ---
Date of Encounter: 04/06/19 Time of Encounter: 10:00 Assessment and Plan (1) Atrial fibrillation Current Visit: Yes Status: Acute Per Cardiology: Apparent new onset PAF. Currently sinus rhythm. Average heart rate on telemetry past 12 hours 75. TSH and Mag stable. Troponin negative x 2. Cardizem drip now off. Now on amiodarone drip. Repeat limited echo pending. Discussed and reviewed with Dr. Andrea Huitron, we will convert to amiodarone 400 mg by mouth twice a day during hospital stay with plans to discharge on 200 mg by mouth twice a day. We will need to evaluate an outpatient setting converting to different antiarrhythmic. Regarding long-term anticoagulation, currently on IV heparin drip. Long-term anticoagulation will need addressed prior to discharge. Has history of CVA and ASD repair in 2002. Will evaluate once Echo complete. Qualifiers: Atrial fibrillation type: paroxysmal Qualified Code(s): I48.0 - Paroxysmal atrial fibrillation (2) NSVT (nonsustained ventricular tachycardia) Current Visit: Yes Status: Acute Per Cardiology: No recurrence nonsustained VT noted. Per Dr. Landeros, left heart catheterization with no significant lesions. Echo pending for EF assessment. On amiodarone. Electrolytes stable. Discussion w patient/family: The assessment and plan as outlined above was discussed with the patient and/or family members who expressed understanding and agreement. All questions were answered. Thank you for involving us in the care of your patient. Please call with any questions. History of Present Illness Consult date: 04/06/19 Requesting physician: Iris Drummond Consult reason: Afib, NSVT Chief complaint: Dizziness History of present illness: Mr. Zhang is a 63 year old male with relevant past medical history of diabetes mellitus, CVA in 2002, ASD repair at [facility] around 2002. EP consult for A. fib and ventricular tachycardia. Reports went to work and noticed episodes of dizziness intermittently. He denied any syncope or falls. Denies any chest pain, shortness of breath, palpitations. Reports ECG obtained at work and noted to be in atrial fibrillation. Currently reports intermittent dizziness. Continues to deny any other concerns or complaints. Denies any recent falls. Denies any active bleeding or blood loss. Reports history of rectal bleeding about 3-4 years ago and underwent GI evaluation with "benign polyps". Denies any known history of atrial fibrillation. Denies any recent infectious process, denies any fever, chills, nausea, vomiting, diarrhea. Currently indicates dizziness has resolved. He denies any short of breath, chest pain, any concerns of his right groin site. Denies any active bleeding or blood loss. Past Med Surg Social Fam HX - Past Medical History Attestation: Yes The following information was validated with the patient. Source: patient, old records reviewed Medical history: CVA, diabetes, other (ASD repair) Psychiatric history: no psych history - Past Surgical History Surgical History: herniorrhaphy - Social History Smoking Status: Never smoker Smokeless Tobacco Status: No Alcohol use: none Drug use: none Medications and Allergies Aspirin 325 mg PO DAILY 04/29/17 [History] Metformin HCl [Glucophage] 1,000 mg PO BID 04/29/17 [History] Allergy/AdvReac Type Severity Reaction Status Date / Time No Known Allergies Allergy Verified 04/04/19 10:27 All Systems Review: The remainder of the systems were reviewed and are negative - Cardiovascular Cardiovascular: as per HPI, lightheadedness Physical Examination Vital Signs, Last 4 Hours Pulse 04/06/19 08:00 61 General: Conversant, No Apparent Distress HEENT: Atraumatic, Normocephaly, Mucus Membranes Moist Neck: No JVD, Normal carotid pulses Cardiac: Reg Rate and Rhythm, Normal S1 and S2, No Murmur Lungs: Normal Breath Sounds, No Wheeze, Rales, Rhonchi Neuro: Alert and responsive, No focal deficits noted Abdomen: Soft, Non-Tender Skin: No rashes noted on visualized skin, Other (Right groin site dry and intact, no hematoma, no ecchymosis, no bleeding, right PT and DP pulses 2+ palpable) Musculoskeletal: No Chest Wall Tenderness Extremities: No Clubbing, No Cyanosis, No Edema, Normal Pulses Results 04/06/19 04:12 04/06/19 04:12 Lab Results Laboratory Tests 04/04/19 04/05/19 04/06/19 10:07 08:37 04:12 Hgb 13.0 Hct 39.7 Creatinine Est GFR (Non-Af Amer) Magnesium Troponin I < 0.03 < 0.03 04/06/19 04:12 Hgb Hct Creatinine 0.76 Est GFR (Non-Af Amer) > 60 Magnesium 2.1 Troponin I Impressions Echocardiogram 04/04/19 13:27 Impressions: Not all LV segments were well visualized. Grossly, LV function appears mildly reduced. Normal LV chamber size, wall thickness. Indeterminate diastolic function. Normal right ventricular structure and function. No evidence of a PFO with agitated saline contrast. No evidence of pulmonary hypertension. No significant valvular dysfunction. Recommend a repeat limited study with contrast enhancement for better evaluation of LV function. Findings: Study Quality * Technically sub-optimal due to poor echocardiographic windows. ECG Findings * Atrial fibrillation. Left Ventricle * Not all LV segments were well visualized. Grossly, LV function appears mildly reduced. * Normal LV chamber size, wall thickness. * Indeterminate diastolic function. Right Ventricle * Normal right ventricular structure and function. Left Atrium * Moderately dilated left atrium. Right Atrium * Normal right atrial size. Interatrial Septum * No evidence of a PFO with agitated saline contrast. Aortic Valve * Trileaflet aortic valve with normal function. * No aortic regurgitation. * No aortic stenosis. Mitral Valve * Normal mitral valve structure and function. * No mitral regurgitation. * No mitral stenosis. Tricuspid Valve * Normal tricuspid valve structure and function. * Trace tricuspid regurgitation. * No evidence of pulmonary hypertension. Pulmonic Valve * Normal pulmonic valve structure and function. * Trace pulmonic regurgitation. Aorta * Normally sized aortic root. Pericardium * The pericardium appears normal. IVC * Normal IVC dimensions and inspiratory collapse. Pulmonary Artery * Normal visualized portions of the main pulmonary artery. Active Medications Acetaminophen (Tylenol) 650 mg PO Q6HR PRN PRN Reason: Mild Pain/Fever Stop: 10/04/19 14:48 Last Admin: 04/05/19 20:32 Dose: 650 mg Documented by: Dextrose/Water (Dextrose 50% (Syg)) 25 ml IVP AD PRN PRN Reason: Hypoglycemia Stop: 10/04/19 15:14 Glucagon (Glucagen) 1 mg IM ONCE PRN PRN Reason: Hypoglycemia Stop: 10/04/19 15:14 Glucose (Gluctose) 15 gm PO ONCE PRN PRN Reason: Hypoglycemia Stop: 10/04/19 15:14 Glucose (Gluctose) 30 gm PO ONCE PRN PRN Reason: Hypoglycemia Stop: 10/04/19 15:14 Heparin Sodium (Porcine) (Heparin) 4,000 unit IVP Q6HR PRN PRN Reason: SEE COMMENTS Stop: 10/04/19 10:35 Heparin Sodium (Porcine) (Heparin) 2,000 unit IVP Q6H PRN PRN Reason: SEE COMMENTS Stop: 10/04/19 10:35 Heparin Sodium/Dextrose (Heparin 25,000 Unit/250 Ml D5w) 25,000 unit in 250 mls @ 9.996 mls/hr IVC .Q24H JENNIFER; Protocol Stop: 10/04/19 10:46 Last Titration: 04/06/19 04:15 Dose: 13.93 unit/kg/hr, 11.7 mls/hr Documented by: Sodium Chloride (0.9 % Sodium Chloride) 1,000 mls @ 100 mls/hr IVC .Q10H JENNIFER Stop: 10/04/19 12:31 Last Admin: 04/06/19 06:31 Dose: 100 mls/hr Documented by: Dextrose (Dextrose 5%) 1,000 mls @ 100 mls/hr IVC .Q10H PRN PRN Reason: HYPOGLYCEMIA Stop: 10/04/19 15:14 Amiodarone HCl/Dextrose (Amiodarone Drip Premix 360mg/200ml) 360 mg in 200 mls @ 16.667 mls/hr IVC CONT JENNIFER Stop: 10/04/19 16:31 Last Admin: 04/06/19 09:53 Dose: 0.5 mg/min, 16.7 mls/hr Documented by: Insulin Human Lispro (Humalog) 6 units 0.08 units/kg (6 units) SQ TIDWM [facility] Stop: 10/04/19 17:01 Last Admin: 04/06/19 07:56 Dose: 6 units Documented by: Naloxone HCl (Narcan) 0.4 mg IVP Q2MPRN PRN PRN Reason: SEE COMMENTS Stop: 10/04/19 14:48 - Imaging and Cardiology Echo: pending, report reviewed Cardiac cath: report reviewed Consult Discharge Plan - Plan Referrals: Kory Bacon MD [Primary Care Provider] -
[2019-04-06] MEDS ORDERED: Perflutren Lipid Microsphere 1.3 ML in 0.9 % Sodium Chloride 8.7 ML IVP ONE (12:16)
--- NOTE | 2019-04-06 13:37 | Event Note ---
Date of Encounter: 04/06/19 Time of Encounter: 13:30 - Cardiology Event Note EF on echo 60%. Patient interested in Xarelto for AC-- layton check pending.
--- NOTE | 2019-04-06 13:45 | Electrocardiograph Report ---
[address] [place], [place] [address] Test Date: 2019-04-04 Pat Name: Fredrick Zhang Department: TRAUMA1 Room: 2N10 Gender: M Tobacco Dipper: : 1955 Requested By: Roxann Porter Order Number: [id number] Reading MD: Gabriel Landeros Measurements Intervals [place] Rate: 73 P: -4 NM: 155 QRS: -45 QRSD: 83 T: 46 QT: 334 QTc: 368 Interpretive Statements Sinus rhythm Poor R wave progression BASELINE ARTIFACT Electronically Signed On 04-06-2019 13:44:07 EDT by Gabriel Landeros
--- NOTE | 2019-04-06 13:47 | Electrocardiograph Report ---
[address] [place], [place] [address] Test Date: 2019-04-04 Pat Name: Fredrick Zhang Department: TRAUMA1 Room: 2N10 Gender: M Office Nurse: : 1955 Requested By: Roxann Porter Order Number: [id number] Reading MD: Gabriel Landeros Measurements Intervals [place] Rate: 70 P: 12 HI: 162 QRS: -44 QRSD: 85 T: 46 QT: 360 QTc: 389 Interpretive Statements Poor R wave progression NORMAL SINUS RHYTHM Electronically Signed On 04-06-2019 13:45:28 EDT by Gabriel Landeros
[2019-04-06] MEDS ORDERED: *HR* Rivaroxaban 10 MG TABLET PO SCH (15:05)
[2019-04-06 16:45] VITALS: BP 121/76
--- NOTE | 2019-04-06 17:27 | Discharge Summary ---
- NOTES TO OUTPATIENT PROVIDER Notes to Outpatient Provider: Posthospital discharge for atrial fibrillation with rapid ventricular response now on chronic anticoagulation with xarelto. Patient would need to follow up with the metal model builder as well as a postage machine operator within 2 to 4 weeks Date of Encounter: 04/06/19 Time of Encounter: 17:24 - Discharge Diagnosis (1) Atrial fibrillation with RVR Priority: Primary Status: Acute Assessment and Plan: We will DC on oral amiodarone and Xarelto. prior authorization for Xarelto, however the graphic arts instructor rx copy card was used for now pt to follow-up with postage machine operator. Status post left heart catheter, appears normal sinus rhythm on telemetry and on exam,diltiazem gtt has been discontinued, now on amiodarone, insulin TSH is unremarkable 1.49. Baseline LFTs also unremarkable within normal limits. 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 Although this appears to be new onset A. fib, his endorse a history of patient having night terrors and complaining of having racing heartbeats. Quite likely patient has proximal A. fib. Currently on diltiazem and heparin drip cardiology is following, appreciate their input (2) Type 2 diabetes mellitus Priority: Secondary Status: Acute Assessment and Plan: A1c 6.6, POC ranged from 79-133, was managed with insulin therapy he is now back in diabetic diet and cardiac diet will discharge home on metformin serum creatinine on discharge is 0.76 Qualifiers: Diabetes mellitus retirement insulin use: without rn long term care use Diabetes mellitus complication status: without complication Qualified Code(s): E11.9 - Type 2 diabetes mellitus without complications (3) History of stroke Priority: Secondary Status: Acute Assessment and Plan: Patient stated that his stroke was attributed to 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 He denies any focal deficits except for global aphasia. Not currently on any anti-lipid medication, his only medication is aspirin. He will benefit from secondary prevention medical management. Will check lipid panel in am. (4) DVT prophylaxis Priority: Secondary Status: Acute Assessment and Plan: on heparin drip, will discharge today Hospital course: Mr. Zhang is a 63 year old male was hospitalized for it fibrillation with rapid ventricular response. He underwent a left heart catheter which was unrevealing. He was initially managed with diltiazem drip but became hypoten sive as such he has been switched to amiodarone. He received 2 days of IV amiodarone and will be switched to oral amiodarone load. Patient agreed to anticoagulation therapy with Xarelto which required prior authorization postage machine operator team will work on prior auth, on the interim he was provided a graphic arts instructor script assist. Patient heparin drip was discontinued he was administered a dose of Xarelto prior to discharge. Plan is for him to follow up with the metal model builder as outpatient. Discharge discussed with: patient, family, nurse, social work, case management, call center support consultant - Time Spent with Patient Total time spent providing and/or coordinating discharge services: 40 mins Specific discharge activities: Please take medications as prescribed and make sure you follow up with outpatient physician visits. Stop taking aspirin 325 and only take baby aspirin 81 mg - Discharge Medications Prescriptions: New Aspirin 81 mg PO DAILY #30 tab.chew Amiodarone [Cordarone] 1 - 2 tab PO AD 30 Days #74 tablet Rivaroxaban [Xarelto] 20 mg PO QDPC #30 tablet Continued Metformin HCl [Glucophage] 1,000 mg PO BID Discontinued Aspirin 325 mg PO DAILY Home Medications: Metformin HCl [Glucophage] 1,000 mg PO BID 04/29/17 [History] Amiodarone [Cordarone] 1 - 2 tab PO AD 30 Days #74 tablet 04/06/19 [Rx] Aspirin 81 mg PO DAILY #30 tab.chew 04/06/19 [Rx] Rivaroxaban [Xarelto] 20 mg PO QDPC #30 tablet 04/06/19 [Rx] Allergies/Adverse Reactions: Allergy/AdvReac Type Severity Reaction Status Date / Time No Known Allergies Allergy Verified 04/04/19 10:27 Date of admission: 04/04/19 13:27 Primary care physician: Kory Bacon MD Consults: 04/04/19 10:33 Consult to Cardiology [CONS] Stat Comment: Consulting Provider: Cardiology Tawanna Reason for Consult: A fib w/ V Tach Call Completed: Yes 04/04/19 14:52 Consult to Public Relations Studies Director [CONS] Routine Reason for SW Consult: afib will likely need chronic anticoagulation 04/04/19 14:54 Consult to Cardiology [CONS] Routine Comment: Consulting Provider: Cardiology Tawanna Reason for Consult: already familiar patient afib rvr Time Notified: 14:54 Call Completed: Yes 04/06/19 10:29 Consult to Electrophysiology (EP) [CONS] Routine Consulting Provider: Electrophysiology Tawanna Reason for Consult: afib Call Completed: Yes Discharging clinician: Junior David Anticipated date of discharge: 04/06/19 - Constitutional Vitals: Temp Pulse Resp BP Pulse Ox 98.5 F 64 18 121/76 99 04/06/19 16:38 04/06/19 16:38 04/06/19 16:38 04/06/19 16:38 04/06/19 16:38 Exam: GEN: NAD, A&O x 3, Pleasant and conversant, and 2 sons wet his bedside SKIN: [place] warm acyanotic not jaundice HEART: irregular rate and rhythm but rate controlled, no murmurs LUNGS: CTA no wheeze or crackles, overall non labored ABDOMEN; Soft, non tender or distended, BS x 4 normactive EXT: No LE edema, Pedal pulses 1+, radial pulses 2+ PSYCH: Mood and affect is appropriate Telemetry atrial fibrillation noted at 65-73 - Patient Status Disposition: Home, Self-Care Condition: Good Functional capacity at discharge: independent ambulation Overall status at discharge: patient is back to baseline - Discharge Instructions Follow Up With: Kory Bacon MD [Primary Care Provider] - 04/06/19 9:45 am Shon Hu CNP [Advanced Practice Nurse] - (office will call patient with follow up appointment) - Diet and Activity Activity: resume usual activities as tolerated Diet: low fat, low cholesterol, low salt diet
--- NOTE | 2019-04-06 18:05 | Electrocardiograph Report ---
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 Inferior infarct, old Possible anterior infarct, age indeterminate Electronically Signed On 04-06-2019 18:03:14 EDT by Leslye Salcedo
== END 2019-04-06 18:57 | disposition home or self-care (01) | DRG 287 ==
LOC: EMEROOARM 09:56 → 2NNU 13:27 → SUATTDRO 13:27 → 2NNU 13:55
PROVIDERS: ADMIT Pharmacist; ATTEND Pharmacist